=== PATIENT | female | born 1990 | race Asian ===

== ENCOUNTER 2022-05-07 01:06 | Emergency (ER) | payer SELFPAY ==
[2022-05-07 02:03] LABS: Urine Blood Trace-intact (Negative); Urine Glucose Negative (Negative); Urine Protein Negative (Negative)
[2022-05-07] MEDS ORDERED: GLUCAGON 1 MG/VIAL ONE (02:13)
[2022-05-07] MEDS ORDERED: NA CHLORIDE 0.9% 1,000 ML ONE (02:15)
[2022-05-07 02:25] LABS: Absolute Lymphocytes (CBC) 1.6 K/uL (0.7-4.9); Hematocrit 39.9 % (36.0-45.0); Lymphocytes % 14.1 % (15.3-44.8); MCV 89.8 fL (80-100); RBC Red Blood Cell Count 4.45 M/uL (3.86-4.86)
[2022-05-07 02:36] LABS: Albumin 3.5 g/dL (3.4-5.0); Bilirubin Total 0.7 mg/dL (0.2-1.0); Potassium 3.4 mmol/L (3.5-5.1); Protein, Total 7.5 g/dL (6.4-8.2)
--- NOTE | 2022-05-07 02:56 | EDPHYS ---
Physician Documentation [facility] Name: Mery Gordon Age: 31 yrs Sex: Female : 1990 Arrival Date: 05/07/2022 Time: 01:11 Bed 19 Private MD: ED Physician Paul Thomas HPI: 05/07 02:51 This 31 yrs old Female presents to ER via EMS with complaints of Foreign Body darcie In Throat. 02:51 The patient presents with sore throat, dysphagia, a foreign body sensation in the darcie throat. The patient describes throat pain as constant. Onset: The symptoms/episode began/occurred just prior to arrival, yesterday. Severity of symptoms: At their worst the symptoms were mild, moderate, in the emergency department the symptoms have improved, mildly. Modifying factors: The symptoms are alleviated by nothing, the symptoms are aggravated by swallowing. Associated signs and symptoms: Pertinent positives: shortness of breath Sore throat. The patient has not experienced similar symptoms in the past. 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 - Social history:: Smoking status: Patient reports the use of cigarette tobacco products, smokes one pack cigarettes per day. Patient uses alcohol, weekly. street drugs, marijuana. ROS: 02:53 Constitutional: Negative for fever, chills, and weight loss, Eyes: Negative for injury, darcie pain, redness, and discharge, Neck: Negative for injury, pain, and swelling, Cardiovascular: Negative for chest pain, palpitations, and edema, Respiratory: Negative for shortness of breath, cough, wheezing, and pleuritic chest pain, Abdomen/GI: Negative for abdominal pain, nausea, vomiting, diarrhea, and constipation, Back: Negative for injury and pain, : Negative for injury, bleeding, discharge, and swelling, MS/Extremity: Negative for injury and deformity, Skin: Negative for injury, rash, and discoloration, Neuro: Negative for headache, weakness, numbness, tingling, and seizure, Psych: Negative for depression, anxiety, suicide ideation, homicidal ideation, and hallucinations, Allergy/Immunology: Negative for hives, rash, and allergies, Endocrine: Negative for neck swelling, polydipsia, polyuria, polyphagia, and marked weight changes, Hematologic/Lymphatic: Negative for swollen nodes, abnormal bleeding, and unusual bruising. 02:53 ENT: Positive for difficulty swallowing, sore throat. Exam: 02:53 Constitutional: This is a well developed, well nourished patient who is awake, alert, darcie and in no acute distress. Head/Face: Normocephalic, atraumatic. Eyes: Pupils equal round and reactive to light, extra-ocular motions intact. Lids and lashes normal. Conjunctiva and sclera are non-icteric and not injected. Cornea within normal limits. Periorbital areas with no swelling, redness, or edema. ENT: Nares patent. No nasal discharge, no septal abnormalities noted. Tympanic membranes are normal and external auditory canals are clear. Oropharynx with no redness, swelling, or masses, exudates, or evidence of obstruction, uvula midline. Mucous membranes moist. Neck: Trachea midline, no thyromegaly or masses palpated, and no cervical lymphadenopathy. Supple, full range of motion without nuchal rigidity, or vertebral point tenderness. No Meningismus. Chest/axilla: Normal chest wall appearance and motion. Nontender with no deformity. No lesions are appreciated. Cardiovascular: Regular rate and rhythm with a normal S1 and S2. No gallops, murmurs, or rubs. Normal PMI, no JVD. No pulse deficits. Respiratory: Lungs have equal breath sounds bilaterally, clear to auscultation and percussion. No rales, rhonchi or wheezes noted. No increased work of breathing, no retractions or nasal flaring. Abdomen/GI: Soft, non-tender, with normal bowel sounds. No distension or tympany. No guarding or rebound. No evidence of tenderness throughout. Back: No spinal tenderness. No costovertebral tenderness. Full range of motion. Skin: Warm, dry with normal turgor. Normal color with no rashes, no lesions, and no evidence of cellulitis. MS/ Extremity: Pulses equal, no cyanosis. Neurovascular intact. Full, normal range of motion. Neuro: Awake and alert, GCS 15, oriented to person, place, time, and situation. Cranial nerves II-XII grossly intact. Motor strength 5/5 in all extremities. Sensory grossly intact. Cerebellar exam normal. Normal gait. Psych: Awake, alert, with orientation to person, place and time. Behavior, mood, and affect are within normal limits. Vital Signs: 01:24 BP 133 / 83; Pulse 101; Resp 17 S; Temp 98.8(O); Pulse Ox 100% on R/A; Weight 77.11 kg lg3 (R); Height 5 ft. 0 in. (152.40 cm) (R); 02:19 BP 126 / 84; Pulse 89; Resp 17 S; Pulse Ox 100% on R/A; lg3 03:47 BP 128 / 81; Pulse 84; Resp 16 S; Pulse Ox 100% on R/A; lg3 01:24 Body Mass Index 33.20 (77.11 kg, 152.40 cm) lg3 MDM: 01:[address] [facility] 03:02 Differential diagnosis: chemical burn, laryngitis, pharyngitis, tonsillitis, upper darcie respiratory infection, uvulitis. Data reviewed: vital signs, nurses notes, EMS record, lab test result(s), EKG, radiologic studies, plain films. Data interpreted: pvc monitor: rate is 89 beats/min, rhythm is regular, Pulse oximetry: on room air is 100 %. Test interpretation: by ED physician or midlevel provider: ECG, plain radiologic studies. Counseling: I had a detailed discussion with the patient and/or guardian regarding: the historical points, exam findings, and any diagnostic results supporting the discharge/admit diagnosis, lab results, radiology results, the need for outpatient follow up, for definitive care, an ENT specialist, a family practitioner. 05/07 01:29 Order name: CBC with Diff; Complete Time: 02:44 [facility] 05/07 01:29 Order name: Comprehensive Metabolic Panel; Complete Time: 02:42 [facility] 05/07 01:29 Order name: Chest Single View XRAY [facility] 05/07 02:03 Order name: Urine Dipstick-Ancillary; Complete Time: 02:14 EDMS 05/07 02:03 Order name: Urine --Ancillary (enter results); Complete Time: 02:42 wm 05/07 02:45 Order name: Neck Soft Tissue XRAY [facility] 05/07 01:29 Order name: EKG - Nurse/Tech; Complete Time: 02:13 [facility] 05/07 01:29 Order name: PO challenge; Complete Time: 02:03 [facility] 05/07 01:29 Order name: Urine Dipstick-Ancillary (obtain specimen); Complete Time: 02:02 [facility] 05/07 01:29 Order name: Urine Test (obtain specimen); Complete Time: 02:02 darcie Administered Medications: 02:18 Drug: NS 0.9% 1000 ml Route: IV; Rate: 1 bolus; Site: right antecubital; lg3 03:10 Follow up: Response: No adverse reaction; IV Status: Completed infusion; IV Intake: lg3 1000ml 03:10 Not Given (Physician Discretion): GlucaGen (glucagon) 1 mg IVP once lg3 03:10 Not Given (Physician Discretion): GlucaGen (glucagon) 1 mg IVP once; REPEAT IN ONE HOUR lg3 03:29 Not Given (Patient Refused): Potassium Effervescent Tablet 25 mEq PO once; dissolve in lg3 4 ounces of water or juice 03:29 Drug: Cipro (ciprofloxacin) 250 mg Route: PO; lg3 03:31 Follow up: Response: No adverse reaction lg3 03:29 Drug: GI Cocktail without - (Maalox Suspension 30 ml, Lidocaine Liquid 2 % 15 lg3 ml) Route: PO; 03:30 Follow up: Response: No adverse reaction lg3 03:47 Drug: Rocephin (cefTRIAXone) 1 grams Route: IV; Rate: per protocol; Site: right lg3 antecubital; 03:47 Follow up: Response: No adverse reaction; IV Status: Completed infusion; IV Intake: [id number] Disposition Summary: 05/07/22 02:56 Discharge Ordered Location: Home darcie Problem: new darcie Symptoms: have improved darcie Condition: Stable darcie Diagnosis - Hypokalemia darcie - Dysphagia darcie - UTI/ Urinary tract infection, site not specified darcie Followup: darcie - With: Private Physician - When: 2 - 3 days - Reason: Recheck today's complaints, Continuance of care, Re-evaluation by your physician Followup: darcie - With: Radha Teran MD - When: 1 - 2 days - Reason: Recheck today's complaints, Re-evaluation by your physician Discharge Instructions: - Discharge Summary Sheet darcie - Dysphagia darcie - Hypokalemia darcie - Dysphagia Eating Plan, Bite Size Food darcie Forms: - Medication Reconciliation Form [facility] - Thank You Letter darcie - Antibiotic Education darcie - Prescription Opioid Use [facility] Prescriptions: - Cipro 250 mg Oral Tablet - take 1 tablet by ORAL route every 12 hours; 14 tablet; Refills: 0, Product [facility] Selection Permitted - Zofran 4 mg Oral Tablet - take 1 tablet by ORAL route every 12 hours As needed; 14 tablet; Refills: 0, [facility] Product Selection Permitted Signatures: Dispatcher [employer] Paul Pyle MD MD cha Gibson, Lacie, RN RN lg3 Abigail Amaro PABlayne PABlayne sb4
--- NOTE | 2022-05-07 02:56 | ER ---
Nurse's Notes [facility] Name: Mery Gordon Age: 31 yrs Sex: Female : 1990 Arrival Date: 05/07/2022 Time: 01:11 Bed 19 Private MD: Diagnosis: Hypokalemia;Dysphagia;UTI/ Urinary tract infection, site not specified Presentation: 05/07 01:24 Chief complaint: Patient states: i was eating a snickers bar earlier today and there is lg3 a piece stuck in my throat blocking my airway. know there is something in there because i coughed out a piece but there is still a piece in there. I keep going in and out of consciousness. i smoked weed earlier today too. Coronavirus screen: Client denies travel out of the [place] in the last 14 days. At this time, the client does not indicate any symptoms associated with coronavirus-19. Ebola Screen: No symptoms or risks identified at this time. Initial Sepsis Screen: Does the patient meet any 2 criteria? No. Patient's initial sepsis screen is negative. Does the patient have a suspected source of infection? No. Patient's initial sepsis screen is negative. Risk Assessment: Do you want to hurt yourself or someone else? Patient reports no desire to harm self or others. Onset of symptoms was May 07, 2022. 01:24 Method Of Arrival: EMS: [facility] lg3 01:24 Acuity: JEF 3 lg3 Triage Assessment: 01:28 General: Appears in no apparent distress. comfortable, Behavior is anxious, fussy, lg3 restless. Pain: Complains of pain in throat. 01:35 EENT: No deficits noted. No signs and/or symptoms were reported regarding the EENT lg3 system. Oral mucosa is moist. Neuro: No deficits noted. Level of Consciousness is awake, alert, obeys commands, Oriented to person, place, time, situation, Speech is normal. Cardiovascular: No deficits noted. Denies chest pain, Capillary refill < 3 seconds Clubbing of nail beds is absent JVD is absent Patient's skin is warm and dry. Respiratory: No deficits noted. Reports shortness of breath air hunger labored breathing Airway is patent Trachea midline Respiratory effort is even, unlabored, Respiratory pattern is regular, symmetrical, Breath sounds are clear bilaterally. GI: No deficits noted. No signs and/or symptoms were reported involving the gastrointestinal system. Abdomen is round non-distended, Bowel sounds present X 4 quads. Abd is soft and non tender X 4 quads. : No deficits noted. No signs and/or symptoms were reported regarding the genitourinary system. Derm: No deficits noted. No signs and/or symptoms reported regarding the dermatologic system. Skin is intact, is healthy with good turgor, Skin is dry, Skin is normal, Skin temperature is warm. Musculoskeletal: No deficits noted. No signs and/or symptoms reported regarding the musculoskeletal system. Circulation, motion, and sensation intact. Range of motion: intact in all extremities. 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 - Social history:: Smoking status: Patient reports the use of cigarette tobacco products, smokes one pack cigarettes per day. Patient uses alcohol, weekly. street drugs, marijuana. Screenin:38 Abuse screen: Denies threats or abuse. Denies injuries from another. Nutritional lg3 screening: No deficits noted. Tuberculosis screening: No symptoms or risk factors identified. Fall Risk None identified. Assessment: 01:38 General: see triage assessment . lg3 02:18 Reassessment: Patient appears in no apparent distress at this time. No changes from lg3 previously documented assessment. Patient and/or family updated on plan of care and expected duration. Pain level reassessed. Patient is alert, oriented x 3, equal unlabored respirations, skin warm/dry/pink. 03:29 Reassessment: Patient appears in no apparent distress at this time. No changes from lg3 previously documented assessment. Patient and/or family updated on plan of care and expected duration. Pain level reassessed. Patient is alert, oriented x 3, equal unlabored respirations, skin warm/dry/pink. pt able to swallow secretions and medications without complications. Vital Signs: 01:24 BP 133 / 83; Pulse 101; Resp 17 S; Temp 98.8(O); Pulse Ox 100% on R/A; Weight 77.11 kg lg3 (R); Height 5 ft. 0 in. (152.40 cm) (R); 02:19 BP 126 / 84; Pulse 89; Resp 17 S; Pulse Ox 100% on R/A; lg3 03:47 BP 128 / 81; Pulse 84; Resp 16 S; Pulse Ox 100% on R/A; lg3 01:24 Body Mass Index 33.20 (77.11 kg, 152.40 cm) lg3 ED Course: 01:11 Patient arrived in ED. ja2 01:24 Lorraine Black, SHELLY is Primary Nurse. lg3 01:26 Paul Thomas MD is Attending Physician. darcie 01:28 Triage completed. lg3 01:35 Arm band placed on right wrist. lg3 01:38 Patient has correct armband on for positive identification. Placed in gown. Bed in low lg3 position. Call light in reach. Side rails up X 1. Client placed on continuous cardiac and pulse oximetry monitoring. NIBP monitoring applied. hitcher on. Door closed. Noise minimized. Warm blanket given. 01:50 Chest Single View XRAY In Process Unspecified. EDMS 02:09 Comprehensive Metabolic Panel Sent. lg3 02:09 CBC with Diff Sent. lg3 02:18 Inserted saline lock: 20 gauge in right antecubital area, using aseptic technique. lg3 Blood collected. 02:55 Radha Teran MD is Referral Physician. darcie 03:08 Neck Soft Tissue XRAY In Process Unspecified. EDMS 03:30 No provider procedures requiring assistance completed. lg3 03:48 IV discontinued, intact, bleeding controlled, No redness/swelling at site. Pressure lg3 dressing applied. Administered Medications: 02:18 Drug: NS 0.9% 1000 ml Route: IV; Rate: 1 bolus; Site: right antecubital; lg3 03:10 Follow up: Response: No adverse reaction; IV Status: Completed infusion; IV Intake: lg3 1000ml 03:10 Not Given (Physician Discretion): GlucaGen (glucagon) 1 mg IVP once lg3 03:10 Not Given (Physician Discretion): GlucaGen (glucagon) 1 mg IVP once; REPEAT IN ONE HOUR lg3 03:29 Not Given (Patient Refused): Potassium Effervescent Tablet 25 mEq PO once; dissolve in lg3 4 ounces of water or juice 03:29 Drug: Cipro (ciprofloxacin) 250 mg Route: PO; lg3 03:31 Follow up: Response: No adverse reaction lg3 03:29 Drug: GI Cocktail without - (Maalox Suspension 30 ml, Lidocaine Liquid 2 % 15 lg3 ml) Route: PO; 03:30 Follow up: Response: No adverse reaction lg3 03:47 Drug: Rocephin (cefTRIAXone) 1 grams Route: IV; Rate: per protocol; Site: right lg3 antecubital; 03:47 Follow up: Response: No adverse reaction; IV Status: Completed infusion; IV Intake: [id number] Medication: 03:48 VIS not applicable for this client. lg3 Intake: 03:10 IV: 1000ml; Total: 1000ml. lg3 03:47 IV: 10ml; Total: 1010ml. lg3 Outcome: 02:56 Discharge ordered by . darcie 03:47 Discharged to home ambulatory. lg3 03:47 Condition: stable 03:47 Discharge instructions given to patient, Instructed on discharge instructions, follow up and referral plans. medication usage, Demonstrated understanding of instructions, follow-up care, medications, Prescriptions given X 2. 03:48 Patient left the ED. lg3 Signatures: Dispatcher [employer] EDMS Paul Thomas MD MD cha Gibson, Lacie RN RN lg3 Arleen Montes Corrections: (The following items were deleted from the chart) 01:37 01:28 Pain: Complains of pain in throat lg3 lg3
[2022-05-07] MEDS ORDERED: LIDOCAINE VISCOUS 2% SOLN 15 ML UDC ONE (03:23)
[2022-05-07] MEDS ORDERED: CIPROFLOXACIN HCL 500 MG TAB ONE (03:23)
[2022-05-07] MEDS ORDERED: MAGNES/ALUMIN/SIMET 30ML UCUP ONE (03:23)
[2022-05-07] MEDS ORDERED: CEFTRIAXONE 1000 MG/VIAL ONE (03:32)
[2022-05-07 04:12] VITALS: TEMP 98.8; O2SAT 100
[2022-05-07 04:15] VITALS: BP 128/81
--- NOTE | 2022-05-07 22:39 | RAD REPORT ---
EXAM DESCRIPTION: XR Soft Tissue Neck CLINICAL HISTORY: The patient is 31 years old and is Female; FORIEGN BODY TECHNIQUE: Frontal and lateral views of the soft tissues of the neck. COMPARISON: No relevant prior studies available. FINDINGS: AIRWAY: Unremarkable. No abnormal narrowing. BONES/JOINTS: Unremarkable. SOFT TISSUES: Unremarkable. No abnormal soft tissue prominence. Normal epiglottis. IMPRESSION: Normal soft tissues of the neck. Electronically signed by: Alexa Mercado MD 05/07/2022 3:17 AM CDT Due to temporary technical issues with the PACS/Fluency reporting system, reports are being signed by the in house radiologists without review as a courtesy to insure prompt reporting. The interpreting radiologist is fully responsible for the content of the report.
--- NOTE | 2022-05-08 08:56 | RAD REPORT ---
EXAM DESCRIPTION: XR Chest, 1 View CLINICAL HISTORY: The patient is 31 years old and is Female; COUGH TECHNIQUE: Frontal view of the chest. COMPARISON: No relevant prior studies available. FINDINGS: Lungs: Unremarkable. No consolidation. Pleural space: Unremarkable. No pneumothorax. Heart: Unremarkable. Mediastinum: Unremarkable. Bones/joints: Unremarkable. IMPRESSION: No acute findings in the chest. Electronically signed by: Mamadou Ramirez MD 05/07/2022 1:56 AM CDT Due to temporary technical issues with the PACS/Fluency reporting system, reports are being signed by the in house radiologists without review as a courtesy to insure prompt reporting. The interpreting radiologist is fully responsible for the content of the report
== END 2022-05-07 03:48 | disposition home or self-care (01) ==
LOC: ER 01:06
DX: R13.10 Dysphagia, unspecified (principal); E87.6 Hypokalemia; N39.0 Urinary tract infection, site not specified; F17.210 Nicotine dependence, cigarettes, uncomplicated
CPT/HCPCS: 36415; 70360; 71045; 80053; 81003; 81025; 85025; 96361; 96374; 99284; J1610; J7030